=== PATIENT | male | born 1985 | race Caucasian/White ===

== ENCOUNTER 2018-06-29 06:35 | Day surgery (SDC) | payer OTHER, MEDICARE, MEDICAID ==
[~2018-06-29] VITALS: Ht 165.1 cm; Wt 54.0 kg
[~2018-06-29 06:35] MED LIST: BENZ1TAB10 PO; DSS100 PO; LUBI24CA2 PO; OLAN5TAB2 PO; OLAN7.5T2 PO
[2018-06-29] MEDS ORDERED: ONDANSETRON HCL 4 MG/2 ML VIAL IVP ONE (06:36)
[2018-06-29] MEDS ORDERED: DEXAMETHASONE SOD PHOS 4 MG/ML VIAL IVP ONE (06:36)
[2018-06-29] MEDS ORDERED: PROPOFOL 1% 20 ML VIAL IVP ONE (06:36)
[2018-06-29] MEDS ORDERED: SUCCINYLCHOLINE CHLORIDE 20 MG/ML 10 ML VIAL IVP ONE (06:36)
[2018-06-29] MEDS ORDERED: LIDOCAINE/PF 2% 5 ML VIAL IM ONE (06:36)
[2018-06-29] MEDS ORDERED: FentaNYL CITRATE-PF 100 MCG/2 ML VIAL IVP ONE (06:36)
[2018-06-29] MEDS ORDERED: RINGERS SOLUTION,LACTATED 1,000 ML IV ONE ×2 (06:39→07:45)
[2018-06-29] MEDS ORDERED: AMPICILLIN SODIUM 1 GM/VIAL ONE (07:31)
[2018-06-29] MEDS ORDERED: MEPERIDINE-PF 25 MG/ML VIAL IVP PRN (11:15)
[2018-06-29] MEDS ORDERED: HYDROmorphone 2 MG/ML SYRINGE IVP PRN (11:15)
[2018-06-29] MEDS ORDERED: FentaNYL CITRATE-PF 100 MCG/2 ML VIAL IVP PRN (11:15)
[2018-06-29] MEDS ORDERED: RINGERS SOLUTION,LACTATED 500 ML IV ONE (11:44)
[2018-06-29] MEDS ORDERED: OXYGEN THERAPY IH SCH (20:00)
== END 2018-06-29 12:45 | disposition home or self-care (01) ==
LOC: SURGERY 06:35
PROVIDERS: ATTEND Dentist General Practice
DX: K05.30 Chronic periodontitis, unspecified (principal); G80.8 Other cerebral palsy; E80.4 Gilbert syndrome; K59.00 Constipation, unspecified; E11.9 Type 2 diabetes mellitus without complications; I51.9 Heart disease, unspecified; Z87.19 Personal history of other diseases of the digestive system; Z86.19 Personal history of other infectious and parasitic diseases; Z79.899 Other long term (current) drug therapy
CPT/HCPCS: 41899; J0290; J0330; J1100; J2405; J2704; J3010; J3490; J7120 ×2

== ENCOUNTER 2020-12-06 06:12 | Day surgery (SDC) | payer OTHER, MEDICARE, MEDICAID ==
[~2020-12-06] VITALS: Ht 165.1 cm; Wt 54.0 kg
[~2020-12-06 06:12] MED LIST changes: -OLAN5TAB2 PO; +OLAN5TAB52 PO; -OLAN7.5T2 PO; +OLAN7.5T22 PO; +RINGERS SOLUTION,LACTATED 1,000 ML IV ONE
[2020-12-06] MEDS ORDERED: ONDANSETRON HCL 4 MG/2 ML VIAL IVP ONE (06:13)
[2020-12-06] MEDS ORDERED: 0.9% SODIUM CHLORIDE 10 ML VIAL IVP ONE (06:13)
[2020-12-06] MEDS ORDERED: ROCURONIUM BROMIDE 10 MG/ML 5 ML VIAL IVP ONE (06:13)
[2020-12-06] MEDS ORDERED: LIDOCAINE/PF 2% 5 ML VIAL IM ONE (06:13)
[2020-12-06] MEDS ORDERED: FentaNYL CITRATE PF 100 MCG/2 ML VIAL IVP ONE (06:13)
[2020-12-06] MEDS ORDERED: PROPOFOL 1% 20 ML VIAL IVP ONE (06:13)
[2020-12-06] MEDS ORDERED: DEXAMETHASONE SOD PHOS 4 MG/ML VIAL IVP ONE (06:13)
[2020-12-06] MEDS ORDERED: RINGERS SOLUTION,LACTATED 1,000 ML IV ONE (06:30)
[2020-12-06] MEDS ORDERED: AMPICILLIN SODIUM 2 GM/NS 100 ML IV ONE (06:30)
[2020-12-06 07:02] LABS: COVID AG,FIA SOURCE NASOPHARYNGEAL
[2020-12-06 07:03] LABS: BASOPHILS % (AUTO) 0.5 % (0.0-2.0); EOSINOPHILS % (AUTO) 2.2 % (1.0-6.0); HEMATOCRIT 43.1 % (41-53); HEMOGLOBIN 14.8 g/dL (13.5-17.5); MEAN CORPUSCULAR HEMOGLOBIN 30.7 pg (26.0-34.0); MEAN CORPUSCULAR HGB CONC 34.2 G/dL (31.0-37.0); MEAN CORPUSCULAR VOLUME 90 fL (80-100); MONOCYTES # (AUTO) 0.5 K/uL (0.1-1.0); MONOCYTES % (AUTO) 7.5 % (2.0-9.0); NEUTROPHILS % (AUTO) 44.8 % (40.0-70.0); PLATELET COUNT (AUTO) 161 K/uL (150-450); RED CELL DISTRIBUTION WIDTH 13.4 % (11.5-14.5)
[2020-12-06 07:07] LABS: ANION GAP 6 mmol/L (8-16); CARBON DIOXIDE 31 mmol/L (22-29); CHLORIDE 112 mmol/L (98-107); CREATININE 1.22 mg/dL (0.60-1.30); GLOMERULAR FILTR. RATE CALC > 60 mL/min (>60); GLUCOSE,RANDOM 122 mg/dL (70-110); POTASSIUM 3.8 mmol/L (3.5-5.1); SODIUM SERUM 149 mmol/L (136-145); UREA NITROGEN, BLOOD 21 mg/dL (7-18)
[2020-12-06 07:10] LABS: PROTHROMBIN TIME 10.3 SEC (9.4-11.6)
[2020-12-06 07:13] LABS: ALANINE AMINOTRANSFERASE 44 U/L (12-78); ALBUMIN 4.3 g/dL (3.4-5.0); ALKALINE PHOSPHATASE 151 U/L (46-116); ASPARTATE AMINOTRANSFERASE 28 U/L (15-37); TOTAL PROTEIN, SERUM 8.4 g/dL (6.4-8.2)
[2020-12-06] MEDS ORDERED: MULT-264 PO (08:23)
[2020-12-06] MEDS ORDERED: SUGAMMADEX SODIUM 200 MG/2 ML VIAL IVP ONE (09:17)
== END 2020-12-06 11:10 | disposition home or self-care (01) ==
LOC: SURGERY 06:12
PROVIDERS: ATTEND Dentist General Practice
DX: K02.9 Dental caries, unspecified (principal); K05.30 Chronic periodontitis, unspecified; K03.6 Deposits [accretions] on teeth; F84.0 Autistic disorder; E11.9 Type 2 diabetes mellitus without complications; G80.9 Cerebral palsy, unspecified; F63.81 Intermittent explosive disorder; E80.4 Gilbert syndrome; F95.2 Tourette's disorder; K59.00 Constipation, unspecified; Z79.899 Other long term (current) drug therapy; Z98.890 Other specified postprocedural states; Z79.01 Long term (current) use of anticoagulants
CPT/HCPCS: 36415; 41899; 71045; 80053; 85025; 85610; 85730; 87426; 93005; A9575; C9803; J0290; J1100; J2405; J2704; J3010; J3490 ×2; J7120